=== PATIENT | female | born 1950 | race Caucasian/White ===

== ENCOUNTER 2022-12-08 12:31 | Outpatient (CLI) | payer MEDICARE, SELFPAY ==
--- NOTE | 2022-12-08 13:40 | P.ANES_ITS ---
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
--- NOTE | 2022-12-08 13:48 | W.ANESCHARGE ---
Anesthesia Charges Start Date/Time Anesthesia Start Date: 12/08/22 Anesthesia Start Time: 13:11 Stop Date/Time Anesthesia Stop Date: 12/08/22 Anesthesia Stop Time: 13:37 Summary Extremes of Age - Over 70 or under 1: MDA
== END 2022-12-08 12:32 | disposition home or self-care (01) ==
LOC: OP CLINIC 12:40
PROVIDERS: PCP Family Medicine; Visit Provider Internal Medicine Gastroenterology
DX: Z12.11 Encounter for screening for malignant neoplasm of colon (principal); K64.8 Other hemorrhoids; Q43.8 Other specified congenital malformations of intestine; Z80.0 Family history of malignant neoplasm of digestive organs
CPT/HCPCS: 45378; 812; 99100; J2704